=== PATIENT | male | born 1950 | race Caucasian/White ===

== ENCOUNTER 2017-03-20 09:30 | Inpatient (IN) | payer MEDICARE ==
[~2017-03-20] VITALS: Ht 173 cm; Wt 101.0 kg
[2017-03-20] VITALS (7 sets, daily range): BP systolic 116–159; BP diastolic 59–78
--- NOTE | ~2017-03-20 | CON ---
[place], [place] REPORT OF CONSULTATION NAME: DEBBIE BARONE [facility] #: [id number] UNIT #: [id number] ROOM: 511 DOCTOR: SG BURCH MD BIRTHDATE: [birth year] DOS: 03/21/2017 CONSULTATION REQUESTED BY: Hospitalist services. REASON FOR CONSULTATION: Assess the patient for acute pneumonia. HISTORY OF PRESENT ILLNESS: This is a 66-year-old white male who has been admitted to the hospital on 03/20/2017. The patient came into the hospital, as the patient was noted with having progressive increased respiratory symptom. The patient rather reported having runny nose with mild cough initially. The symptoms have been noted progressively worsened with significant progressive shortness of breath. The shortness of breath has been noted with gradually worsening. The patient presented to the Emergency Room for assessment of that. He was also complaining of heaviness in the chest. As the patient arrived in the Emergency Room, his saturation noted at 85%. The patient has been treated with Levaquin by the primary care physician initially with recurrent symptoms. The patient was also noted with confusional status as well previously that seemed to be resolved at this time. He has been assessed in the Emergency Room with chest x-ray and then later on CT scan of the chest was also done. It has reported bilateral patchy infiltration in the lungs. REVIEW OF SYSTEMS: CONSTITUTIONAL: Fatigue and tiredness noted. The patient denies any fever or chills. EYES: Denied any burning, redness, or tenderness. EARS, NOSE, THROAT SYMPTOMS: No sore throat, hoarseness, otalgia, postnasal drainage. CARDIOVASCULAR: Denies any anginal pain, edema or pain of the lower extremities. GASTROINTESTINAL: Dysphagia was noted. He has been noted some vomiting and nausea previously, which seemed to be resolved. GENITOURINARY SYMPTOMS: Denies dysuria, suprapubic pain, hematuria. MUSCULOSKELETAL: Flank pain. SKIN: Denies any abnormal lesions or rashes. CENTRAL NERVOUS SYSTEM: Denies dizziness, headache at this time. The patient has been noted dizziness as previously and confusion, which seemed to be all resolved. Denies symptoms of seizures. Denies syncopal episodes. Remaining systems were reviewed with the patient, they were noted all negative. PAST MEDICAL HISTORY: Known with history of: 1. General anxiety disorder. 2. Essential hypertension. 3. Hyperlipidemia. 4. History of gout. PAST SURGICAL HISTORY: 1. Lithotripsy. 2. Right knee replacement. 3. Cardiac catheterization. [place], [place] REPORT OF CONSULTATION NAME: DEBBIE BARONE UNIT #: [id number] ROOM: [facility] DOCTOR: PRIYANKA ZAMORA MD,SG BIRTHDATE: [birth year] SOCIAL HISTORY: The patient stated that he is . He has 2 children. Smoked about 3 cigarettes a day. Denies any history of alcohol use, illicit drug use. The patient denies any exposure to any chemical dust recently. FAMILY HISTORY: Father at the age of 5858 years old from complication of cancer in the bone. The mother at the age of 8181 years old from complication related to acute stroke. HOME MEDICATIONS: Noted use of allopurinol, Xanax, aspirin, Lipitor, vitamin D, losartan, metoprolol tartrate, Paxil and Comfrey 3 fatty acids. DRUG ALLERGIES: NOTED ALLERGY TO AMOXICILLIN. PHYSICAL EXAMINATION: GENERAL: A 66-year-old white male who has been currently noted awake and alert without any distress. VITAL SIGNS: Height of 5 feet 8 inches, weight of 173 pounds. BMI 33.7. HEENT: Head is atraumatic. Eyes, nonicterus. NECK: Supple. CARDIOVASCULAR: S1, S2 is audible. LUNGS: The patient was noted with scattered crackles in the lung is noted with significantly reduced breath sounds bilaterally with expiratory wheezing. There were no crackles. ABDOMEN: Soft, nontender and obese. EXTREMITIES: Noted without any edema, clubbing, cyanosis. NEUROLOGIC: Cranial nerves 2-12 intact. No focal deficits. MUSCULOSKELETAL: Does not show any acute deformities. LABORATORY DATA: Lactic acid on admission 03/20/2017 was at 2.3. Follow up lactic acid same day is 2.1. The ammonia level noted less than 10 on 03/20/2017. CMP on 03/20/2017, BUN 27, creatinine normal, glucose 134. Sodium 134. Albumin 2.2. CBC on 03/20/2017, WBC count 12.5, hemoglobin 12.2, hematocrit 35.9, platelet count was noted 214,000. CBC of this morning, WBC count 12.9, hemoglobin 11, hematocrit 32.5, platelet count 205,000, 78% segmented neutrophils. The CMP on 03/21/2017 was noted BUN 26, creatinine 1.25 and glucose 335. BUN and creatinine was normal. Urine culture that was done 03/20/2017 shows no bacterial growth. The chest x-ray 2 view, which were done in the Emergency Room, personally reviewed showed bilateral area of patchy infiltration in the lungs. CT scan of the head in the Emergency Room was also done for assessment of confusion. Shows mild paranasal sinusitis without any acute intracranial abnormalities. CT scan of the chest that was done personally reviewed without contrast. The mediastinal window was initially reviewed does not show any lymphadenopathy even the CT scan was done without contrast. The lymph node enlargement does not seem to be any significant. However, the finding still would be considered limited because of the lack of the contrast to delineated structures. CT scan of the chest dramatic finding, area of consolidation, which is present with associated ground glass opacity in the lungs. The findings were present in the left upper lung, right middle lobe, patchy infiltration lung capacity in the lingula. Lower lobe noted only small ground glass opacities. The area in the other lung continues with the ground [place], [place] REPORT OF CONSULTATION NAME: DEBBIE BARONE UNIT #: [id number] ROOM: 511 DOCTOR: SG BURCH MD BIRTHDATE: [birth year] glass opacities with area of consolidation combination and some air bronchograms. Chest x-ray in 2013 was noted to be normal. IMPRESSION: 1. The patient who has been currently admitted to the hospital with symptoms of confusion, bilateral current ground opacity area of consolidation with a differential diagnosis considered for Legionella pneumonia, mycoplasma pneumonia and bacterial pneumonia including streptococcal pneumonia as well. The other possibility less likely to be considered as acute eosinophilic pneumonia with other differential remains as acute hypersensitivity pneumonitis. The patient's drug reaction which appeared to be less likely because of current distribution of the pulmonary infiltrations. Additional differential diagnosis would be considered as cryptogenic organizing pneumonia. Possibility of vasculitis and connective tissue disorder appeared to be less likely because of no other multisystem involvement except confusion noted on the admission, which seemed to be better. Viral etiology, current pneumonia would be considered as well. 2. The patient with acute exacerbation of chronic obstructive pulmonary disease and bronchial asthma would be considered concomitantly. PLAN OF MANAGEMENT: Order the workup rather for the current acute pneumonia. Order the urine for legionella antigen as well as Mycoplasma antibodies. The patient will be also ordered the usual work connective tissue disorder, ESR, and procalcitonin level. Nasopharyngeal PCR specimen will be obtained as well and also obtain the specimen for the RSV infection as well. Start the patient on intravenous corticosteroids. Coverage for atypical infection would be given with the antibiotics. Bronchodilator will be continued to help mobilize the secretions. Monitor respiratory status closely with chest x-ray progression as well. Other supportive treatment to be continued as well. Sputum for Gram stain and culture is able to expectorate sputum could be sent to the lab as well. Usual care, other plan of therapy and care. Additional treatment changes to be made for this patient based on the progression of the illness. Thank you for allowing me to participate in the care of this patient. SG MATHEW MD CM:CONSTR:REPORT OF CONSULTATION 1326 03/22/17 0200 interface
--- NOTE | ~2017-03-20 | PR ---
[place], [place] PROGRESS NOTE NAME: DEBBIE BARONE UNIT #: [id number] ROOM: [facility] DOCTOR: SG BURCH MD BIRTHDATE: [birth year] DOS: 03/22/2017 SUBJECTIVE: He has been noted comfortable with reduction in symptoms of shortness of breath. He had been comfortably resting on the bed at this time. Denies symptoms of chest pain. Cough has been noted mild without any sputum expectoration. OBJECTIVE: VITAL SIGNS: Vital signs which were recorded for the patient showed the temperature noted as normal. Respiratory rate 20, heart rate of 62, blood pressure 180/93-168/80. Pulse oxygen saturation of the patient recorded on 2 liters nasal cannula 98% saturation. HEENT: Moderate obesity. NECK: Supple. CARDIOVASCULAR: S1, S2 audible. LUNGS: Noted with moderate reduction in the breath sounds, scattered crackles. There was no wheezing, scattered wheezing rather as well. ABDOMEN: Soft, nontender. LABORATORY DATA: BMP today: BUN 29, creatinine was normal. CBC this morning; WBC count 17.8, hemoglobin 11.2, hematocrit 33.0, platelet count 248,000. ESR was noted as 97 was elevated, C-reactive protein was also elevated 9.82. Influenza A and B, nasal washing antigens were negative. Respiratory viral panel for the patient was also ordered, which was pending. Other workup for connective tissue disorder remains pending as well. IMPRESSION: The patient who has been currently admitted to the hospital noted with findings of bilateral areas of infiltration, which was noted in the lungs bilaterally with consolidation and ground glass opacities. Etiology has been considered as bacteria, viral and other noninfectious etiology causing the current abnormalities. Some of the testing which has been ordered for the patient was pending at this time. Symptomatically the patient has been noted with partial improvement. PLAN OF MANAGEMENT: Continuation of the bronchodilators, oxygen supplementation, corticosteroids intravenously, Zithromax and Rocephin. Follow up chest x-ray in the next 24 hours will be ordered. [place], [place] PROGRESS NOTE NAME: DEBBIE BARONE UNIT #: [id number] ROOM: [facility] DOCTOR: SG BURCH MD BIRTHDATE: [birth year] SG MATHEW MD CM:EVELIO [id number] SG ZAMORA MD 03/23/17 0014 interface
--- NOTE | ~2017-03-20 | PR ---
[place], [place] PROGRESS NOTE NAME: DEBBIE BARONE UNIT #: [id number] ROOM: [facility] DOCTOR: PRIYANKA ZAMORA MD,SG BIRTHDATE: [birth year] DOS: 03/23/2017 SUBJECTIVE: The patient was seen and examined on 03/23/2017. He has been noted in confusional status. The patient at nighttime taking off his pants being on the floor and could not remember those episodes. This morning, the patient has been noted awake and alert. He has reported symptoms of snoring at home. I did speak with the of this patient. It has been noted currently the patient's status occurring for the past 3-4 days. However, the symptoms of the patient described consistent with obstructive sleep apnea disorder, has been reported from home. He has not been noted any symptoms of chest pain. The patient does have symptoms of cough. Denies symptoms of hemoptysis. OBJECTIVE: VITAL SIGNS: Temperature remains normal. The respiratory rate of 19, heart rate 64, blood pressure in 220/110-136/69. Intake of the patient 2700 mL, output 1050. The pulse oxygen saturation noted on 3 liters nasal cannula 96% saturation. HEENT: Examination shows chronic obesity. Head was atraumatic. NECK: Supple. CARDIOVASCULAR: S1, S2 audible. LUNGS: Noted without any wheeze or crackles at the present time. ABDOMEN: Noted soft with chronic obesity. Bowel sounds present. EXTREMITIES: Shows chronic obesity without any edema, clubbing or cyanosis. SKIN: No lesions noted. No rashes. LABORATORY AND DIAGNOSTIC DATA: The arterial blood gas 2 liters nasal cannula was done at 4:21 p.m., pH is 7.39, pCO2 of 32, pO2 of 80.8. Ammonia level was noted at 20. Urine drug screen negative yesterday as well. CMP this morning, normal BUN and creatinine. Albumin 2.2. AST 47, ALT of 81. CBC of 03/23/2017, WBC count 17,000, hemoglobin 11.1, hematocrit 33.1, platelet count 180,000, 85% segmented neutrophils noted. Arterial blood gas again repeated on 3 L nasal cannula, pH of 7.37, pCO2 of 39.5, pO2 of 117. The culture of the sputum was noted as normal luisito. The mycoplasma IgG level was mildly elevated with normal IgM which is not noted consistent with acute infection. B12 level was noted with mildly elevated at 1182. The chest x-ray yesterday was noted essentially improvement in the pulmonary infiltration as compared with the admission chest x-ray with significant improvement continued. The chest x-ray of the patient done this morning was also noted further continued improvement. IMPRESSION: 1. The patient noted bilateral pulmonary infiltration. The patient is suspected pneumonia and other etiologies. The patient currently being treated. 2. Confusion status in nighttime, possibility of sleep disorder with parasomnia would be considered in the differential diagnosis, rule out psychosis as well. 3. The patient was noted disparity of the blood pressure in both arm, rule out subclavian stenosis. 4. Chronic obesity. 5. Clinical strong suspicion of obstructive sleep apnea disorder. PLAN OF TREATMENT: Possibility of multiorgan system involvement including the [place], [place] PROGRESS NOTE NAME: DEBBIE BARONE UNIT #: [id number] ROOM: [facility] DOCTOR: SG BURCH MD BIRTHDATE: [birth year] brain to be assessed. The patient requires further workup from a neurology standpoint and vascular workup and was recommended for transfer to the tertiary care facility. For all the facilities and the consultation appropriate needed for the patient would be available. This was discussed with the patient's daughter and the medical historian taking care of this patient. The arrangement will be made for this patient for transfer to another hospital, [facility]. The patient's pneumonia and other process, which are noted in the lungs, is pending. Certain workup for vasculitis that has been sent on this patient, which has been pending at this time of the assessment. Other supportive plan of therapy, care and plan. SG MATHEW MD CM:PNBATSHEVA [id number] SG ZAMORA MD 03/29/17 0921 interface
--- NOTE | ~2017-03-20 | EKG ---
[place], [place] ELECTROCARDIOGRAM REPORT NAME: DEBBIE BARONE UNIT #: [id number] ROOM: 511 DOCTOR: PRIYANKA ZAMORA MD,SG BIRTHDATE: [birth year] DOS: 03/20/2017 Electrocardiogram testing was done 03/20/2017 10:02 a.m. Normal sinus rhythm noted with heart rate of 73 beats per minute with nonspecific ST-T changes noted to aVL. Otherwise, normal electrocardiogram. SG MATHEW MD CM:EKGRPT:ELECTROCARDIOGRAM REPORT [id number] SG ZAMORA MD
[2017-03-20 10:13] LABS: HEMATOCRIT 35.9 % (42.0-52.0); HEMOGLOBIN 12.2 g/dl (14.0-18.0); MEAN CELL VOLUME 98.1 fl (80.0-94.0); MEAN CORPUSCULAR HGB 33.3 pg (27.0-31.0); MEAN PLATELET VOLUME 10.8 fl (9.6-12.3); NUCLEATED RED BLOOD CELL 0.2 % (0.0-0.0); PLATELET COUNT AUTOMATED 214 10*3/uL (130-400); RED BLOOD COUNT 3.66 10*6/uL (4.50-5.90); RED CELL DISTRI WIDTH 13.3 % (0-14.5); WHITE BLOOD COUNT 12.5 10*3/uL (4.8-10.8)
--- NOTE | 2017-03-20 10:21 | NUR ---
HEMANT ROBLES MADE AWARE OF NOTED ST ELEVATION ON PT MONITOR.SHE ORDERED AN EKG AND IS COMPARING IT TO PREVIOUS EKG--BETZY FIERRO RN
[2017-03-20 10:31] LABS: ALBUMIN 2.2 gm/dl (3.1-4.5); ALKALINE PHOSPHATASE 107 U/L (45-117); BUN 27 mg/dl (7-24); CHLORIDE 100 mmol/L (98-107); POTASSIUM 4.2 mmol/L (3.5-5.1); SGOT/AST 21 IU/L (3-35); SGPT/ALT 30 U/L (12-78); SODIUM 134 mmol/L (136-145); TOTAL PROTEIN 7.3 gm/dL (6.4-8.2)
[2017-03-20 10:32] LABS: ETHYL ALCOHOL < 3.0 mg/dl (<3); TROPONIN I < 0.015 ng/ml (<0.045)
--- NOTE | 2017-03-20 10:34 | NUR ---
pt returning FROM XRAY AT THIS TIME.---BETZY FIERRO RN
[2017-03-20 10:42] LABS: PLATELET SUFFICIENCY NORMAL (NORMAL); TOTAL CELLS COUNTED 100 #CELLS
[2017-03-20 10:43] LABS: TOXIC GRANULATION SLIGHT
[2017-03-20 11:01] LABS: BILIRUBIN NEGATIVE (NEGATIVE); BLOOD 1+ (NEGATIVE); CLARITY CLEAR (CLEAR); COLOR YELLOW (YELLOW); GLUCOSE NEGATIVE (NEGATIVE); KETONE NEGATIVE (NEGATIVE); LEUKO ESTERASE NEGATIVE (NEGATIVE); NITRITE NEGATIVE (NEGATIVE); PH 6.5 (5.0-9.0); SPECIFIC GRAVITY 1.015 (1.005-1.030); UROBILINOGEN 0.2 E.U./dl (0.2-1.0)
[2017-03-20 11:09] LABS: RBC 0-2 rbc/hpf (0-2)
--- NOTE | 2017-03-20 12:50 | NUR ---
Time: 0 A 66 year old MALE admitted to 5E under services of GAUTAM PENN DO, Pt. arrived via stretcher from ER. Chief complaint: COUGH, WHEEZING, CONFUSED LAST NIGHT, TALKING OUT WHILE S. SLEEPING. ASHLEY DOWELL
[2017-03-20] MEDS ORDERED: XANAX0.5 MG PO (13:10)
[2017-03-20] MEDS ORDERED: PAXIL20 M1 PO (13:11)
[2017-03-20] MEDS ORDERED: ASPIRIN CHILDRE81 MG PO (13:11)
[2017-03-20] MEDS ORDERED: FISH OIL 1,2001 EAC1 PO (13:12)
[2017-03-20] MEDS ORDERED: VITAMIN D32000 UNIT PO (13:12)
[2017-03-20] MEDS ORDERED: LOSARTAN POTASS50 M1 PO (13:13)
[2017-03-20] MEDS ORDERED: TOPROL XL25 MG PO (13:13)
[2017-03-20] MEDS ORDERED: ALLOPURINOL100 MG PO (13:14)
[2017-03-20] MEDS ORDERED: LIPITOR20 MG PO (13:14)
--- NOTE | 2017-03-20 15:43 | NUR ---
DR. MATHEW NOTIFIED OF CONSULT.
--- NOTE | 2017-03-20 18:28 | NUR ---
RESTING WITH NO DISTRESS.
--- NOTE | 2017-03-20 19:30 | NUR ---
ASSUMED CARE OF PT AT THIS TIME, RESPS EASY AND NONLABORED WITH NO S/S OF DISTRESS CALL LIGHT WITH IN REACH
[2017-03-21] VITALS: BP 155/73
--- NOTE | 2017-03-21 01:55 | NUR ---
PT RESTING IN BED AT THIS TIME, RESPS EASY AND NONLABORED EYES CLOSED, NO S/S OF DISTRESS CALL LIGHT WITH IN REACH
[2017-03-21 06:51] LABS: HEMATOCRIT 32.5 % (42.0-52.0); MEAN CELL VOLUME 99.7 fl (80.0-94.0); MEAN CORPUSCULAR HGB 33.7 pg (27.0-31.0); MEAN CORPUSCULAR HGB CONC 33.8 g/dl (33.0-37.0); MEAN PLATELET VOLUME 11.1 fl (9.6-12.3); PLATELET COUNT AUTOMATED 205 10*3/uL (130-400); RED BLOOD COUNT 3.26 10*6/uL (4.50-5.90); RED CELL DISTRI WIDTH 13.4 % (0-14.5); WHITE BLOOD COUNT 12.9 10*3/uL (4.8-10.8)
[2017-03-21 07:21] LABS: TOTAL CELLS COUNTED 100 #CELLS
[2017-03-21 07:22] LABS: PLATELET SUFFICIENCY NORMAL (NORMAL); TOXIC GRANULATION SLIGHT
[2017-03-21 07:27] LABS: ALBUMIN 2.2 gm/dl (3.1-4.5); BUN 26 mg/dl (7-24); CHLORIDE 103 mmol/L (98-107); CHOLESTEROL 122 mg/dL (<200); PHOSPHOROUS 2.2 mg/dL (2.5-4.9); SGOT/AST 25 IU/L (3-35); SGPT/ALT 34 U/L (12-78); SODIUM 136 mmol/L (136-145); TRIGLYCERIDES 113 mg/dl (<150); VLDL CHOLESTEROL 23 mg/dL (6-40)
[2017-03-21 07:36] LABS: VITAMIN D, 25-HYDROXY 37.1 ng/mL (30-100)
[2017-03-21 07:38] LABS: ALKALINE PHOSPHATASE 101 U/L (45-117); CREATININE 1.25 mg/dL (0.70-1.30); FREE T4 1.12 ng/dl (0.76-1.46); HDL CHOLESTEROL 20 mg/dl (40-60); LDL CHOLESTEROL 79 mg/dL (9-159); THYROID STIM HORMONE (HS) 0.096 uIU/ml (0.358-4.75); TOTAL PROTEIN 6.6 gm/dL (6.4-8.2)
[2017-03-21 08:00] VITALS: BP 173/87
--- NOTE | 2017-03-21 09:00 | NUR ---
Anatomy And Physiology Instructor in to talk to patient. Patient states lives at home with . There are few steps in the home. Physician: reji amanda Pharmacy: [facility] health services: none Patient's level of ADLs: INDEPENDENT Patient has working utilities: all working DME: [employer] Follow-up physician's appointment after d/c: will be made by hosptialist nurse director upon discharge Does patient want to access PORTAL?: no Discharge plan discussed with patient, patient lives at home with , patient states he is independent in adls and ambulation, drives, patient states he will be going back home and denies any home needs. SAMRA HALEY
[2017-03-21 12:00] VITALS: BP 153/70
[2017-03-21 16:17] VITALS: BP 170/92
[2017-03-21 20:00] VITALS: BP 179/85
[2017-03-22] VITALS (7 sets, daily range): BP systolic 140–197; BP diastolic 70–95
--- NOTE | 2017-03-22 01:00 | NUR ---
24 HR chart check completed.
[2017-03-22 06:10] LABS: IMMUNOGLOBULIN IgE 002170 491 IU/mL (0-100)
[2017-03-22 08:30] LABS: HEMOGLOBIN 11.2 g/dl (14.0-18.0); MEAN CELL VOLUME 99.1 fl (80.0-94.0); MEAN CORPUSCULAR HGB 33.6 pg (27.0-31.0); MEAN CORPUSCULAR HGB CONC 33.9 g/dl (33.0-37.0); MEAN PLATELET VOLUME 10.5 fl (9.6-12.3); NUCLEATED RED BLOOD CELL 0.2 % (0.0-0.0); PLATELET COUNT AUTOMATED 248 10*3/uL (130-400); RED BLOOD COUNT 3.33 10*6/uL (4.50-5.90); WHITE BLOOD COUNT 17.8 10*3/uL (4.8-10.8)
[2017-03-22 08:48] LABS: TOTAL CELLS COUNTED 100 #CELLS
[2017-03-22 08:49] LABS: BUN 29 mg/dl (7-24); CHLORIDE 106 mmol/L (98-107); PLATELET SUFFICIENCY NORMAL (NORMAL); POLYCHROMASIA SLIGHT; POTASSIUM 4.4 mmol/L (3.5-5.1); SODIUM 137 mmol/L (136-145); TOXIC GRANULATION SLIGHT
[2017-03-22 08:51] LABS: CREATININE 1.21 mg/dL (0.70-1.30)
--- NOTE | 2017-03-22 09:00 | NUR ---
case management visits with patient, patient denies any home needs
--- NOTE | 2017-03-22 10:45 | NUR ---
MEDICATED WITH PRN PO XANAX FOR C/O ANXIETY.
--- NOTE | 2017-03-22 11:30 | NUR ---
PRN PO XANAX EFFECTIVE, PER PATIENT.
--- NOTE | 2017-03-22 13:18 | NUR ---
PATIENT HAVING PERIODS OF CONFUSION, ENCOURAGED TO KEEP OXYGEN NASAL CANNULA IN PLACE.
--- NOTE | 2017-03-22 15:06 | NUR ---
PATIENT HAVING HALLUCINATIONS, STATES SEEING FIGURES SNEAKING AROUND AND HIDING IN PURPLE LIQUID. HE ALSO INQUIRED IF HE WAS STILL IN ROOM 511-1. O2 2L NC IN PLACE, POX 96%, SEE VITAL SIGNS FLOW. DR. CASH NOTIFIED.
[2017-03-22 16:10] LABS: ALDOLASE 002030 6.7 U/L (3.3-10.3); ANGIOTENSIN-CONVERTING ENZYME 28 U/L (14-82)
[2017-03-22 16:39] LABS: ABG BASE EXCESS -4.3 mmol/L (-2.0-2.0); ABG HCO3 19.6 mmol/l (22-26); ABG O2 SATURATION 96.8 % (95-97); ARTERIAL BLOOD GAS PCO2 32.9 mmHg (35-45); ARTERIAL BLOOD GAS PH 7.391 (7.35-7.45); ARTERIAL BLOOD GAS PO2 80.8 mmHg (80-90)
--- NOTE | 2017-03-22 17:00 | NUR ---
DR. SOMERS WAS IN TO SEE PATIENT RE: PLAN OF CARE. PATIENT DENIED HAVING SIGNIFICANT CONFUSION, STATES HAD SOME BRIEF DISORIENTATION LAST NIGHT, LIKE NIGHTMARES, BUT THEN CONTINUES TO SPEAK OF PEOPLE WORKING IN THE [place] AT NIGHT AND LIQUID-LIKE THINGS COMING OUT OF [place]. IN TO VISIT AND AGREES THAT PATIENT IS CONFUSED AND BASELINE WAS COMPLETELY ORIENTED TWO DAYS AGO. RESPIRATORY THERAPIST OBTAINED ABG'S. ORDER ENTERED TO TRANSFER PATIENT TO [facility].
[2017-03-22 17:06] LABS: MYCOPLASMA PNEUMONIAE IGG 107 U/mL (0-99); MYCOPLASMA PNEUMONIAE IGM <770 U/mL (0-769)
--- NOTE | 2017-03-22 17:20 | NUR ---
PATIENT TRANSFERRED TO [facility], REPORT GIVEN TO RECEIVING RN.
--- NOTE | 2017-03-22 17:30 | NUR ---
PT TRANSFERED TO [facility] 9 FROM AT THIS TIME. PT IS ALERT AND ORIENTED. VSS. NSR ON MONITOR.
[2017-03-22 17:58] LABS: URINE AMPHETAMINES < 1000 (1000ng/ml); URINE BARBITURATES < 200 (200ng/ml); URINE BENZODIAZEPINES < 200 (200ng/ml); URINE CANNABINOIDS (THC) < 50 (50ng/ml); URINE COCAINE < 300 (300ng/ml); URINE METHADONE < 300 (300ng/ml); URINE OPIATES < 300 (300ng/ml)
[2017-03-22 17:59] LABS: URINE PHENCYCLIDINE < 25 (25ng/ml)
--- NOTE | 2017-03-22 18:17 | NUR ---
PT MEDICATED WITH LIBRIUM PO PRN AT THIS TIME. PT ADMITS TO DRINKING AFTER WORK EVERYDAY AND PT TRANSFERED TO [facility] AFTER HAVING PERIODS OF CONFUSION AND VISUAL HALLUCINATIONS ON 5E.
--- NOTE | 2017-03-22 20:21 | NUR ---
1945 SITTING UP ON THE SIDE OF THE BED USING URINAL. POLANCO. PULSE OX 90%. HEP LOCK INTACT. WILL RESUME IV FLUIDS AFTER ANTIBIOTICS DONE. ALERT AND PLEASANT. 1999 PULSE OX 96% AFTER RESTING. DR. ROBLERO HERE TO SEE PT. PT RESTING IN BED WATCHING TV. NO C/O'S PAIN OR DISCOMFORT VOICED.
--- NOTE | 2017-03-22 21:48 | NUR ---
XANAX GIVEN FOR SLEEP. WILL MONITOR. RESTING IN BED WATCHING TV. REMAINS ALERT AND ORIENTED.
[2017-03-23] VITALS: BP 140/72
--- NOTE | 2017-03-23 00:26 | NUR ---
EARLIER XANAX EFFECTIVE. RESTING IN BED WITH EYES CLOSED.
--- NOTE | 2017-03-23 02:05 | NUR ---
0150 PT OOB . STANDING AT BEDSIDE. CONFUSED. TO PLACE AND TIME. COOPERATIVE. MONITOR OFF. USED URINAL. BACK TO BED WITH 1 ASSIST. IV INTACT. PULSE OX 96% ON 3L. WILL CONT TO MONITOR.
[2017-03-23 04:00] VITALS: BP 136/69
--- NOTE | 2017-03-23 04:06 | NUR ---
0330 AWAKENED FOR BREATHING RX. AUDUBLE WHEEZE NOTED. REMAINS CONFUSED. LIBRIUM PO GIVEN. WILL MONITOR. 0405 EARLIER MED EFFECTIVE. RESTING IN BED WITH EYES CLOSED.APPEARS TO BE SLEEPING.
[2017-03-23 04:45] LABS: HEMATOCRIT 33.1 % (42.0-52.0); HEMOGLOBIN 11.1 g/dl (14.0-18.0); MEAN CORPUSCULAR HGB 33.5 pg (27.0-31.0); MEAN CORPUSCULAR HGB CONC 33.5 g/dl (33.0-37.0); MEAN PLATELET VOLUME 10.3 fl (9.6-12.3); NUCLEATED RED BLOOD CELL 0.2 % (0.0-0.0); PLATELET COUNT AUTOMATED 280 10*3/uL (130-400); RED BLOOD COUNT 3.31 10*6/uL (4.50-5.90); RED CELL DISTRI WIDTH 14.1 % (0-14.5)
[2017-03-23 05:00] LABS: ALBUMIN 2.2 gm/dl (3.1-4.5); ALKALINE PHOSPHATASE 91 U/L (45-117); BUN 23 mg/dl (7-24); CHLORIDE 102 mmol/L (98-107); CREATININE 1.04 mg/dL (0.70-1.30); POTASSIUM 4.5 mmol/L (3.5-5.1); SGOT/AST 47 IU/L (3-35); SGPT/ALT 81 U/L (12-78); SODIUM 137 mmol/L (136-145); TOTAL PROTEIN 6.3 gm/dL (6.4-8.2)
[2017-03-23 05:30] LABS: PLATELET SUFFICIENCY NORMAL (NORMAL); TOTAL CELLS COUNTED 100 #CELLS; TOXIC GRANULATION SLIGHT
[2017-03-23 06:00] LABS: ABG BASE EXCESS -2.1 mmol/L (-2.0-2.0); ABG HCO3 22.5 mmol/l (22-26); ABG O2 SATURATION 98.3 % (95-97); ARTERIAL BLOOD GAS PCO2 39.5 mmHg (35-45); ARTERIAL BLOOD GAS PH 7.371 (7.35-7.45)
--- NOTE | 2017-03-23 06:08 | NUR ---
REMAINS SLEEPING. HEP LOCK INTACT. 02 INTACT. NO DISTRESS NOTED. CONDITION GUARDED.
[2017-03-23 07:40] VITALS: BP 170/110; BP 220/110
--- NOTE | 2017-03-23 07:40 | NUR ---
ASSESSMENT DONE AT BEDSIDE - PATIENT IS ALERT BUT CONFUSED. ORIENTED TO PERSON & BUT NOT PLACE. REMEMBER WHEN TOLD THAT HE WAS SICK BUT NOT WHAT WAS WRONG. IV started right hand with #22 protective cath after 2 attempts. Site prepped with Chloroprep. Sterile dressing applied. Patient tolerated procedure well. NO NEURO DEFICITS OTHER THAN CONFUSION. EQUAL HOSE INSPECTOR AND PATCHER BILAT, GOOD PULSES TO ALL EXTEMITIES, NO DEFICITS TO LOWER EXTREMITIES. MARA MIRAMONTES
[2017-03-23 08:00] VITALS: BP 220/110
--- NOTE | 2017-03-23 09:18 | NUR ---
DR MATHEW HERE - SPOKE WITH DR ORTIZ & THEY DECIDED TO HOLD THE CTA UNTIL TRANSFERRED. dR MATHEW ALSO SPOKE WITH THE ABOUT HIS SLEEP HISTORY.
--- NOTE | 2017-03-23 09:21 | NUR ---
RE EIVED CALL FROM [facility] FOR FACE SHEET TO BE FAXED TO [phone]
[2017-03-23] MEDS ORDERED: LOSARTAN POTAS100 M1 PO (09:32)
[2017-03-23] MEDS ORDERED: AMLODIPINE BESYL5 MG PO (09:32)
[2017-03-23 10:11] VITALS: BP 160/90; BP 168/92
--- NOTE | 2017-03-23 10:30 | NUR ---
AWAITING CALL FROM [facility] CALL ABOUT BED ARRANGEMENTS. NOW AT BEDSIDE. MED LIST IS UNCHANGED FROM WHAT WAS CHARTED. PATIENT HAS DECIDED THAT HE DOESN'T WANT TO EAT OMLETTE.
--- NOTE | 2017-03-23 10:58 | NUR ---
REPORT TO TREVER AT [facility]. AWAITING [facility] TO ARRIVE FOR TRANSFER. FAMILY AT BEDSIDE
--- NOTE | 2017-03-23 11:33 | NUR ---
PATIENT COUGHING OCC PROD FOR THICK - FAMILY AT BEDSIDE. IV ANTIBIOTIC INFUSING PRIOR TO TRANSFER TO [facility]. AEROSAL TX GIVEN
[2017-03-23 11:47] VITALS: BP 148/82
--- NOTE | 2017-03-23 11:52 | NUR ---
PATIENT BEGAN DOZING OFF BREATHING VIA NOSE BUT SATS STARTED TO DROP TO 89% ON NC2L SO INCREASED O2 TO 3LNC. SATS NOW 91%
--- NOTE | 2017-03-23 12:10 | NUR ---
[facility] HERE TO TRANSPORT PATIENT TO [facility]. FAMILY HERE.
[2017-03-23 16:09] LABS: LEGIONELLA URINARY ANTIGEN Negative (Negative)
[2017-03-23 17:06] LABS: ATYPICAL PANCA <1:20 titer (Neg:<1:20); CYTOPLASMIC (C-ANCA) 1:20 titer (Neg:<1:20); PERINUCLEAR (P-ANCA) <1:20 titer (Neg:<1:20)
[2017-03-24 01:03] LABS: ADENOVIRUS Negative (Negative); INFLUENZA A Negative (Negative); INFLUENZA B Negative (Negative); METAPNEUMOVIRUS Negative (Negative); PARAINFLUENZA 1 Negative (Negative); PARAINFLUENZA 2 Negative (Negative); PARAINFLUENZA 3 Negative (Negative); RHINOVIRUS Positive (Negative); RSV A Negative (Negative); RSV B Negative (Negative)
[2017-03-24 15:07] LABS: IGG SUBCLASS 1 363 mg/dL (248-810); IGG SUBCLASS 2 263 mg/dL (130-555); IGG SUBCLASS 3 32 mg/dL (15-102); IGG SUBCLASS 4 53 mg/dL (2-96)
== END 2017-03-23 12:10 | disposition short-term general hospital (02) | DRG 871 ==
LOC: ED 09:30 → 5E 11:47 → EDHOLD 11:47 → 5E 12:00 → ICCU 03-22 17:06
PROVIDERS: Internal Medicine; Internal Medicine Critical Care Medicine; Internal Medicine Nephrology; Nurse Practitioner Family; Registered Nurse; ADMIT Internal Medicine
DX: A41.9 Sepsis, unspecified organism (principal); J15.6 Pneumonia due to other Gram-negative bacteria; E44.0 Moderate protein-calorie malnutrition; G93.41 Metabolic encephalopathy; J44.0 Chronic obstructive pulmonary disease with (acute) lower respiratory infection; E87.1 Hypo-osmolality and hyponatremia; J44.1 Chronic obstructive pulmonary disease with (acute) exacerbation; R65.20 Severe sepsis without septic shock; E55.9 Vitamin D deficiency, unspecified; I10 Essential (primary) hypertension; E78.00 Pure hypercholesterolemia, unspecified; M10.9 Gout, unspecified; F41.1 Generalized anxiety disorder; G47.33 Obstructive sleep apnea (adult) (pediatric); E66.8 Other obesity; Z96.651 Presence of right artificial knee joint; Z88.8 Allergy status to other drugs, medicaments and biological substances; Z79.899 Other long term (current) drug therapy; Z79.82 Long term (current) use of aspirin; Z72.0 Tobacco use; Z87.442 Personal history of urinary calculi; Z82.3 Family history of stroke; Z80.8 Family history of malignant neoplasm of other organs or systems; Z71.6 Tobacco abuse counseling; Z68.33 Body mass index [BMI] 33.0-33.9, adult

== ENCOUNTER → 2020-10-20 | Outpatient (CLI) | payer MEDICARE ==
[~2020-10-20] MED LIST: ALLOPURINOL100 MG PO; AMLODIPINE BESYL5 MG PO; ASPIRIN CHILDRE81 MG PO; FISH OIL 1,2001 EAC1 PO; LIPITOR20 MG PO; LOSARTAN POTAS100 M1 PO; LOSARTAN POTASS50 M1 PO; PAXIL20 M1 PO; TOPROL XL25 MG PO; VITAMIN D32000 UNIT PO; XANAX0.5 MG PO
[2020-10-20 13:45] LABS: BASO % 0.6 % (0.0-1.0); EOS # 0.4 10*3/uL (0.0-0.4); EOS % 5.4 % (1.0-4.0); HEMATOCRIT 40.9 % (42.0-52.0); LYMPH # 1.6 10*3/uL (1.3-4.4); LYMPH % 23.4 % (27.0-41.0); MEAN CELL VOLUME 99.3 fl (80.0-94.0); MEAN CORPUSCULAR HGB 33.3 pg (27.0-31.0); MEAN CORPUSCULAR HGB CONC 33.5 g/dl (33.0-37.0); MEAN PLATELET VOLUME 10.7 fl (9.6-12.3); MONO # 0.8 10*3/uL (0.1-1.0); MONO % 12.2 % (3.0-9.0); NEUT # 3.9 10*3/uL (2.3-7.9); NEUT % 58.1 % (47.0-73.0); PLATELET COUNT AUTOMATED 181 10*3/uL (130-400); RED BLOOD COUNT 4.12 10*6/uL (4.50-5.90); RETICULOCYTE % 2.21 % (0.50-2.50); WHITE BLOOD COUNT 6.6 10*3/uL (4.8-10.8)
[2020-10-20 13:46] LABS: BILIRUBIN Negative (Negative); BLOOD 1+ (Negative); CLARITY Clear (Clear); COLOR Yellow (Yellow); GLUCOSE Negative (Negative); KETONE Negative (Negative); LEUKO ESTERASE Negative (Negative); NITRITE Negative (Negative); PH 5.5 (4.5-8.0); SPECIFIC GRAVITY 1.015 (1.001-1.030); UROBILINOGEN 0.2 E.U./dl (0.0-1.0)
[2020-10-20 14:04] LABS: ALBUMIN 3.8 gm/dl (3.1-4.5); ALKALINE PHOSPHATASE 72 U/L (45-117); BUN 20 mg/dl (7-24); CHLORIDE 106 mmol/L (98-107); CHOLESTEROL 176 mg/dL (<200); CPK 104 U/L (39-308); CREATININE 1.08 mg/dL (0.70-1.30); GAMMA GLUTAMYL TRANSPEPTIDASE 57 U/L (15-85); IRON 166 ug/dL (65-175); LDL CHOLESTEROL 68 mg/dL (9-159); POTASSIUM 4.4 mmol/L (3.5-5.1); SGOT/AST 25 IU/L (3-35); SGPT/ALT 30 U/L (12-78); SODIUM 138 mmol/L (136-145); TOTAL IRON BINDING CAPACITY 361 ug/dl (250-450); TOTAL PROTEIN 7.5 gm/dL (6.4-8.2); TRIGLYCERIDES 221 mg/dl (<150)
[2020-10-20 14:10] LABS: FERRITIN 135.3 ng/mL (22.0-322.0); VITAMIN D, 25-HYDROXY 26.7 ng/mL (30-100)
[2020-10-20 14:12] LABS: THYROID STIM HORMONE (HS) 0.735 uIU/ml (0.358-4.75)
== END | disposition home or self-care (01) ==
LOC: LAB 13:06
PROVIDERS: ATTEND Family Medicine
DX: E55.9 Vitamin D deficiency, unspecified (principal); R79.89 Other specified abnormal findings of blood chemistry; R53.83 Other fatigue; E78.5 Hyperlipidemia, unspecified

== ENCOUNTER → 2021-05-31 | Outpatient (CLI) | payer MEDICARE ==
[2021-05-31 10:59] LABS: BASO # 0.1 10*3/uL (0.0-0.1); BASO % 0.7 % (0.0-1.0); EOS # 0.4 10*3/uL (0.0-0.4); EOS % 5.5 % (1.0-4.0); LYMPH # 1.5 10*3/uL (1.3-4.4); LYMPH % 22.3 % (27.0-41.0); MEAN CELL VOLUME 102.1 fl (80.0-94.0); MEAN CORPUSCULAR HGB CONC 33.3 g/dl (33.0-37.0); MEAN PLATELET VOLUME 10.6 fl (9.6-12.3); NEUT # 3.9 10*3/uL (2.3-7.9); NEUT % 57.2 % (47.0-73.0); PLATELET COUNT AUTOMATED 184 10*3/uL (130-400); RED BLOOD COUNT 3.82 10*6/uL (4.50-5.90); RED CELL DISTRI WIDTH 13.6 % (0-14.5); RETICULOCYTE % 2.61 % (0.50-2.50); WHITE BLOOD COUNT 6.9 10*3/uL (4.8-10.8)
[2021-05-31 11:06] LABS: BILIRUBIN Negative (Negative); BLOOD Negative (Negative); CLARITY Clear (Clear); COLOR Yellow (Yellow); GLUCOSE Negative (Negative); KETONE Negative (Negative); LEUKO ESTERASE Negative (Negative); NITRITE Negative (Negative); PH 5.5 (4.5-8.0); SPECIFIC GRAVITY 1.015 (1.001-1.030); UROBILINOGEN 0.2 E.U./dl (0.0-1.0)
[2021-05-31 11:21] LABS: MUCOUS TRACE; RBC 0-2 rbc/hpf (0-2); WBC 0-2 wbc/hpf (0-5)
[2021-05-31 11:26] LABS: ALBUMIN 3.4 gm/dl (3.1-4.5); ALKALINE PHOSPHATASE 95 U/L (45-117); BUN 24 mg/dl (7-24); CHLORIDE 106 mmol/L (98-107); CHOLESTEROL 169 mg/dL (<200); CREATININE 1.21 mg/dL (0.70-1.30); GAMMA GLUTAMYL TRANSPEPTIDASE 55 U/L (15-85); IRON 114 ug/dL (65-175); LDL CHOLESTEROL 61 mg/dL (9-159); POTASSIUM 4.1 mmol/L (3.5-5.1); SGOT/AST 26 IU/L (3-35); SODIUM 138 mmol/L (136-145); TOTAL IRON BINDING CAPACITY 297 ug/dl (250-450); TRIGLYCERIDES 209 mg/dl (<150)
[2021-05-31 11:31] LABS: SGPT/ALT 35 U/L (12-78); THYROID STIM HORMONE (HS) 0.736 uIU/ml (0.358-4.75)
== END | disposition home or self-care (01) ==
LOC: LAB 10:25
PROVIDERS: ATTEND Family Medicine
DX: E78.5 Hyperlipidemia, unspecified (principal); R79.89 Other specified abnormal findings of blood chemistry; Z12.5 Encounter for screening for malignant neoplasm of prostate; E55.9 Vitamin D deficiency, unspecified; R53.83 Other fatigue

== ENCOUNTER 2021-11-05 12:44 | Inpatient (IN) | payer MEDICARE ==
[~2021-11-05] VITALS: Ht 172.7 cm; Wt 88.6 kg
[2021-11-05] VITALS (8 sets, daily range): BP systolic 123–167; BP diastolic 59–84
[~2021-11-05 12:44] MED LIST changes: +LOPRESSOR25 MG PO; -TOPROL XL25 MG PO
[2021-11-05 13:26] LABS: BILIRUBIN Negative (Negative); BLOOD 3+ (Negative); CLARITY Clear (Clear); COLOR Yellow (Yellow); GLUCOSE Negative (Negative); KETONE Negative (Negative); LEUKO ESTERASE Negative (Negative); NITRITE Negative (Negative); PH 5.5 (4.5-8.0); SPECIFIC GRAVITY <= 1.005 (1.001-1.030); UROBILINOGEN 0.2 E.U./dl (0.0-1.0)
[2021-11-05 13:31] LABS: BASO % 0.3 % (0.0-1.0); EOS # 0.1 10*3/uL (0.0-0.4); HEMATOCRIT 43.3 % (42.0-52.0); LYMPH # 0.6 10*3/uL (1.3-4.4); LYMPH % 6.4 % (27.0-41.0); MEAN CELL VOLUME 98.4 fl (80.0-94.0); MEAN CORPUSCULAR HGB 33.4 pg (27.0-31.0); MEAN CORPUSCULAR HGB CONC 33.9 g/dl (33.0-37.0); MEAN PLATELET VOLUME 9.8 fl (9.6-12.3); MONO # 1.2 10*3/uL (0.1-1.0); MONO % 12.4 % (3.0-9.0); NEUT # 7.5 10*3/uL (2.3-7.9); NEUT % 79.5 % (47.0-73.0); PLATELET COUNT AUTOMATED 182 10*3/uL (130-400); RED CELL DISTRI WIDTH 13.2 % (0-14.5); WHITE BLOOD COUNT 9.4 10*3/uL (4.8-10.8)
[2021-11-05 13:35] LABS: URINE AMPHETAMINES < 1000 (1000ng/ml); URINE BARBITURATES < 200 (200ng/ml); URINE BENZODIAZEPINES > 200 (200ng/ml); URINE CANNABINOIDS (THC) < 50 (50ng/ml); URINE COCAINE < 300 (300ng/ml); URINE METHADONE < 300 (300ng/ml); URINE OPIATES < 300 (300ng/ml)
[2021-11-05 13:36] LABS: BACTERIA TRACE; EPITHELIAL CELLS 0-2; URINE PHENCYCLIDINE < 25 (25ng/ml)
[2021-11-05 13:46] LABS: CREATININE 2.18 mg/dL (0.70-1.30); TOTAL PROTEIN 6.7 gm/dL (6.4-8.2)
[2021-11-05 13:47] LABS: ACETAMINOPHEN (TYLENOL) < 5.0 ug/ml (10-30)
[2021-11-05] MEDS ORDERED: LIPITOR40 MG PO (18:23)
[2021-11-05] MEDS ORDERED: COZAAR25 M1 PO (18:25)
[2021-11-05] MEDS ORDERED: COZAAR50 M1 PO (18:27)
[2021-11-06] VITALS: BP 176/78
[2021-11-06 04:00] VITALS: BP 167/81
[2021-11-06 05:58] LABS: CREATININE 2.2 mg/dL (0.70-1.30); FREE T4 0.9 ng/dl (0.76-1.46); POTASSIUM 3.5 mmol/L (3.5-5.1); TOTAL PROTEIN 6.1 gm/dL (6.4-8.2)
[2021-11-06 06:02] LABS: THYROID STIM HORMONE (HS) 1.44 uIU/ml (0.358-4.75)
[2021-11-06 06:39] LABS: BASO % 0.3 % (0.0-1.0); EOS # 0.1 10*3/uL (0.0-0.4); EOS % 1.4 % (1.0-4.0); HEMATOCRIT 39.7 % (42.0-52.0); LYMPH # 0.8 10*3/uL (1.3-4.4); LYMPH % 8.4 % (27.0-41.0); MEAN CELL VOLUME 100.8 fl (80.0-94.0); MEAN CORPUSCULAR HGB CONC 33.8 g/dl (33.0-37.0); MONO # 1.4 10*3/uL (0.1-1.0); MONO % 14.5 % (3.0-9.0); NEUT # 7.1 10*3/uL (2.3-7.9); NEUT % 74.9 % (47.0-73.0); PLATELET COUNT AUTOMATED 147 10*3/uL (130-400); RED BLOOD COUNT 3.94 10*6/uL (4.50-5.90); RED CELL DISTRI WIDTH 13.4 % (0-14.5); WHITE BLOOD COUNT 9.4 10*3/uL (4.8-10.8)
[2021-11-06 07:08] LABS: VITAMIN D, 25-HYDROXY 29.4 ng/mL (30-100)
[2021-11-06 08:00] VITALS: BP 155/83
[2021-11-06 12:00] VITALS: BP 160/75
[2021-11-06] MEDS ORDERED: VITAMIN B-121000 MC2 PO (13:24)
[2021-11-06] MEDS ORDERED: COMPLETE SENIO1 EACH PO (13:25)
[2021-11-06 16:00] VITALS: BP 162/86
[2021-11-06 20:00] VITALS: BP 169/87
[2021-11-07] VITALS: BP 164/84
[2021-11-07 04:00] VITALS: BP 161/88
[2021-11-07 04:22] LABS: BASO % 0.4 % (0.0-1.0); EOS # 0.2 10*3/uL (0.0-0.4); EOS % 3.1 % (1.0-4.0); HEMATOCRIT 37.3 % (42.0-52.0); LYMPH # 0.7 10*3/uL (1.3-4.4); MEAN CELL VOLUME 100.8 fl (80.0-94.0); MEAN CORPUSCULAR HGB 33.5 pg (27.0-31.0); MEAN CORPUSCULAR HGB CONC 33.2 g/dl (33.0-37.0); MEAN PLATELET VOLUME 10.6 fl (9.6-12.3); MONO # 1.1 10*3/uL (0.1-1.0); MONO % 14.9 % (3.0-9.0); NEUT # 5.3 10*3/uL (2.3-7.9); NEUT % 71.2 % (47.0-73.0); PLATELET COUNT AUTOMATED 131 10*3/uL (130-400); RED CELL DISTRI WIDTH 13.6 % (0-14.5); WHITE BLOOD COUNT 7.4 10*3/uL (4.8-10.8)
[2021-11-07 04:45] LABS: CREATININE 1.8 mg/dL (0.70-1.30); POTASSIUM 3.4 mmol/L (3.5-5.1); TOTAL PROTEIN 6.1 gm/dL (6.4-8.2)
[2021-11-07 08:00] VITALS: BP 160/82
[2021-11-07 12:00] VITALS: BP 149/74
[2021-11-07 16:00] VITALS: BP 155/84
[2021-11-07 20:00] VITALS: BP 165/96
[2021-11-08] VITALS: BP 173/97
[2021-11-08 04:02] VITALS: BP 179/89
[2021-11-08 05:04] VITALS: BP 133/74
[2021-11-08 05:28] LABS: BUN 17 mg/dl (7-24); CHLORIDE 114 mmol/L (98-107); CREATININE 1.23 mg/dL (0.70-1.30); POTASSIUM 3.3 mmol/L (3.5-5.1); SGOT/AST 18 IU/L (3-35); SGPT/ALT 21 U/L (12-78); SODIUM 143 mmol/L (136-145); TOTAL PROTEIN 5.9 gm/dL (6.4-8.2)
[2021-11-08 05:29] LABS: ALKALINE PHOSPHATASE 59 U/L (45-117)
[2021-11-08 06:12] LABS: BASO % 0.5 % (0.0-1.0); EOS # 0.5 10*3/uL (0.0-0.4); EOS % 7.6 % (1.0-4.0); HEMATOCRIT 36.2 % (42.0-52.0); LYMPH # 0.8 10*3/uL (1.3-4.4); LYMPH % 12.1 % (27.0-41.0); MEAN CELL VOLUME 100.3 fl (80.0-94.0); MEAN CORPUSCULAR HGB 33.8 pg (27.0-31.0); MEAN CORPUSCULAR HGB CONC 33.7 g/dl (33.0-37.0); MONO % 15.6 % (3.0-9.0); NEUT # 4.2 10*3/uL (2.3-7.9); NEUT % 63.6 % (47.0-73.0); PLATELET COUNT AUTOMATED 132 10*3/uL (130-400); RED BLOOD COUNT 3.61 10*6/uL (4.50-5.90); RED CELL DISTRI WIDTH 13.6 % (0-14.5); WHITE BLOOD COUNT 6.6 10*3/uL (4.8-10.8)
[2021-11-08 08:00] VITALS: BP 158/86
[2021-11-08] MEDS ORDERED: LORAZEPAM1 MG PO (10:51)
[2021-11-08] MEDS ORDERED: AMLODIPINE BESYL5 MG PO (10:51)
[2021-11-08 12:00] VITALS: BP 126/75
== END 2021-11-08 13:49 | DRG 917 ==
LOC: ED 12:44 → ICCU 15:57 → EDHOLD 15:57 → ICCU 16:51
PROVIDERS: Internal Medicine; ADMIT Student in an Organized Health Care Education/Training Program; ATTEND Student in an Organized Health Care Education/Training Program
DX: T42.4X2A Poisoning by benzodiazepines, intentional self-harm, initial encounter (principal); N17.0 Acute kidney failure with tubular necrosis; E87.2 Acidosis; E44.0 Moderate protein-calorie malnutrition; F10.10 Alcohol abuse, uncomplicated; E55.9 Vitamin D deficiency, unspecified; M10.9 Gout, unspecified; Y92.89 Other specified places as the place of occurrence of the external cause; R00.1 Bradycardia, unspecified; R31.9 Hematuria, unspecified; F32.A Depression, unspecified; I10 Essential (primary) hypertension; F41.9 Anxiety disorder, unspecified; E78.00 Pure hypercholesterolemia, unspecified; E87.8 Other disorders of electrolyte and fluid balance, not elsewhere classified; R73.9 Hyperglycemia, unspecified; Z88.1 Allergy status to other antibiotic agents; Z82.3 Family history of stroke; Z79.82 Long term (current) use of aspirin; Z79.899 Other long term (current) drug therapy; Z68.29 Body mass index [BMI] 29.0-29.9, adult

== ENCOUNTER → 2022-02-07 | Outpatient (CLI) | payer MEDICARE ==
[~2022-02-07] MED LIST changes: +CLONAZEPAM0.5 M2 PO; +COMPLETE SENIO1 EACH PO; +COZAAR25 M1 PO; +COZAAR50 M1 PO; +FOLTABS 800 TA1 EACH PO; +LIPITOR40 MG PO; +LORAZEPAM1 MG PO; +MIRTAZAPINE15 M2 PO; +SEPTDS PO; +VITAMIN B-1100 M1 PO; +VITAMIN B-121000 MC2 PO
[2022-02-07 13:40] LABS: BILIRUBIN Negative (Negative); BLOOD Negative (Negative); CLARITY Clear (Clear); COLOR Yellow (Yellow); GLUCOSE Negative (Negative); KETONE Negative (Negative); LEUKO ESTERASE Trace (Negative); NITRITE Negative (Negative); PH 5.5 (4.5-8.0); SPECIFIC GRAVITY <= 1.005 (1.001-1.030); UROBILINOGEN 0.2 E.U./dl (0.0-1.0)
[2022-02-07 13:56] LABS: BASO % 0.5 % (0.0-1.0); EOS # 0.3 10*3/uL (0.0-0.4); EOS % 5.1 % (1.0-4.0); HEMATOCRIT 39.3 % (42.0-52.0); LYMPH # 1.5 10*3/uL (1.3-4.4); LYMPH % 23.1 % (27.0-41.0); MEAN CORPUSCULAR HGB CONC 33.3 g/dl (33.0-37.0); MEAN PLATELET VOLUME 10.5 fl (9.6-12.3); MONO # 0.8 10*3/uL (0.1-1.0); MONO % 12.1 % (3.0-9.0); NEUT # 3.8 10*3/uL (2.3-7.9); NEUT % 58.9 % (47.0-73.0); PLATELET COUNT AUTOMATED 228 10*3/uL (130-400); RED BLOOD COUNT 3.97 10*6/uL (4.50-5.90); RED CELL DISTRI WIDTH 13.3 % (0-14.5); RETICULOCYTE % 1.88 % (0.50-2.50); WHITE BLOOD COUNT 6.5 10*3/uL (4.8-10.8)
[2022-02-07 14:01] LABS: BUN 18 mg/dl (7-24); CHLORIDE 110 mmol/L (98-107); CHOLESTEROL 159 mg/dL (<200); GAMMA GLUTAMYL TRANSPEPTIDASE 28 U/L (15-85); POTASSIUM 4.2 mmol/L (3.5-5.1); SODIUM 138 mmol/L (136-145); TRIGLYCERIDES 74 mg/dl (<150)
[2022-02-07 14:11] LABS: ALKALINE PHOSPHATASE 87 U/L (45-117); CREATININE 1.25 mg/dL (0.70-1.30); IRON 77 ug/dL (65-175); LDL CHOLESTEROL 75 mg/dL (9-159); SGOT/AST 21 IU/L (3-35); SGPT/ALT 23 U/L (12-78); THYROID STIM HORMONE (HS) 0.873 uIU/ml (0.358-4.75); TOTAL PROTEIN 7.7 gm/dL (6.4-8.2)
[2022-02-07 14:15] LABS: BACTERIA 1+; WBC 21-30 wbc/hpf (0-5)
== END | disposition home or self-care (01) ==
LOC: LAB 13:06
PROVIDERS: ATTEND Family Medicine
DX: E78.5 Hyperlipidemia, unspecified (principal); E55.9 Vitamin D deficiency, unspecified; R79.89 Other specified abnormal findings of blood chemistry; R53.83 Other fatigue; R74.8 Abnormal levels of other serum enzymes

== ENCOUNTER → 2022-05-25 | Outpatient (CLI) | payer MEDICARE ==
[2022-05-25 12:51] LABS: BASO % 0.5 % (0.0-1.0); EOS # 0.3 10*3/uL (0.0-0.4); EOS % 4.3 % (1.0-4.0); HEMATOCRIT 38.4 % (42.0-52.0); LYMPH # 1.4 10*3/uL (1.3-4.4); LYMPH % 21.6 % (27.0-41.0); MEAN CORPUSCULAR HGB 32.5 pg (27.0-31.0); MEAN CORPUSCULAR HGB CONC 33.9 g/dl (33.0-37.0); MEAN PLATELET VOLUME 10.7 fl (9.6-12.3); MONO # 0.7 10*3/uL (0.1-1.0); MONO % 11.6 % (3.0-9.0); NEUT # 3.9 10*3/uL (2.3-7.9); NEUT % 61.8 % (47.0-73.0); PLATELET COUNT AUTOMATED 210 10*3/uL (130-400); RED CELL DISTRI WIDTH 14.1 % (0-14.5); RETICULOCYTE % 1.98 % (0.50-2.50); WHITE BLOOD COUNT 6.3 10*3/uL (4.8-10.8)
[2022-05-25 12:57] LABS: BILIRUBIN Negative (Negative); BLOOD Negative (Negative); CLARITY Clear (Clear); COLOR Yellow (Yellow); GLUCOSE Negative (Negative); KETONE Negative (Negative); LEUKO ESTERASE 1+ (Negative); NITRITE Positive (Negative); SPECIFIC GRAVITY 1.015 (1.001-1.030); UROBILINOGEN 0.2 E.U./dl (0.0-1.0)
[2022-05-25 13:09] LABS: ALKALINE PHOSPHATASE 67 U/L (46-116); BUN 16 mg/dl (9-23); CHLORIDE 103 mmol/L (98-107); CHOLESTEROL 144 mg/dL (<200); CREATININE 1.12 mg/dL (0.70-1.30); GAMMA GLUTAMYL TRANSPEPTIDASE 24 U/L (0-73); LDL CHOLESTEROL 65 mg/dL (9-159); POTASSIUM 4.1 mmol/L (3.4-5.1); SGPT/ALT 29 U/L (10-49); THYROID STIM HORMONE (HS) 0.641 uIU/ml (0.550-4.780); TRIGLYCERIDES 85 mg/dl (<150)
[2022-05-25 13:24] LABS: BACTERIA 4+; WBC 21-30 wbc/hpf (0-5)
[2022-05-25 13:25] LABS: RBC 0-2 rbc/hpf (0-2)
[2022-05-25 13:26] LABS: VITAMIN D, 25-HYDROXY 39.7 ng/mL (30-100)
== END | disposition home or self-care (01) ==
LOC: LAB 12:09
PROVIDERS: ATTEND Family Medicine
DX: E78.5 Hyperlipidemia, unspecified (principal); E55.9 Vitamin D deficiency, unspecified; R79.89 Other specified abnormal findings of blood chemistry; R53.83 Other fatigue; R74.8 Abnormal levels of other serum enzymes; Z12.5 Encounter for screening for malignant neoplasm of prostate

== ENCOUNTER 2022-09-27 12:35 | Emergency (ER) | payer MEDICARE ==
[~2022-09-27] VITALS: Wt 83.9 kg
[2022-09-27 14:12] LABS: BASO % 0.4 % (0.0-1.0); EOS # 0.3 10*3/uL (0.0-0.4); EOS % 4.4 % (1.0-4.0); HEMATOCRIT 39.9 % (42.0-52.0); LYMPH # 1.1 10*3/uL (1.3-4.4); LYMPH % 14.4 % (27.0-41.0); MEAN CELL VOLUME 94.5 fl (80.0-94.0); MEAN CORPUSCULAR HGB 32.7 pg (27.0-31.0); MEAN CORPUSCULAR HGB CONC 34.6 g/dl (33.0-37.0); MEAN PLATELET VOLUME 10.5 fl (9.6-12.3); MONO # 0.9 10*3/uL (0.1-1.0); NEUT # 5.3 10*3/uL (2.3-7.9); NEUT % 68.4 % (47.0-73.0); PLATELET COUNT AUTOMATED 203 10*3/uL (130-400); RED BLOOD COUNT 4.22 10*6/uL (4.50-5.90); RED CELL DISTRI WIDTH 14.2 % (0-14.5); WHITE BLOOD COUNT 7.7 10*3/uL (4.8-10.8)
[2022-09-27 14:35] LABS: BUN 14 mg/dl (9-23); CHLORIDE 106 mmol/L (98-107); POTASSIUM 4.1 mmol/L (3.4-5.1)
[2022-09-27 14:37] LABS: ETHYL ALCOHOL < 3.0 mg/dl (<3)
[2022-09-27 15:21] LABS: BILIRUBIN Negative (Negative); BLOOD Negative (Negative); CLARITY Clear (Clear); COLOR Yellow (Yellow); GLUCOSE Negative (Negative); KETONE Negative (Negative); LEUKO ESTERASE Negative (Negative); NITRITE Negative (Negative); SPECIFIC GRAVITY 1.015 (1.001-1.030); UROBILINOGEN 0.2 E.U./dl (0.0-1.0)
[2022-09-27 15:28] LABS: URINE AMPHETAMINES Negative (1000ng/ml); URINE BARBITURATES Negative (200ng/ml); URINE BENZODIAZEPINES Negative (200ng/ml); URINE CANNABINOIDS (THC) Negative (50ng/ml); URINE COCAINE Negative (300ng/ml); URINE METHADONE Negative (300ng/ml); URINE OPIATES Negative (300ng/ml); URINE PHENCYCLIDINE Negative (25ng/ml)
[2022-09-27 15:30] LABS: MUCOUS 1+; RBC 0-2 rbc/hpf (0-2); WBC 0-2 wbc/hpf (0-5)
== END 2022-09-27 18:05 | disposition home or self-care (01) ==
LOC: ED 12:35
PROVIDERS: Emergency Medicine
DX: F43.23 Adjustment disorder with mixed anxiety and depressed mood (principal); I10 Essential (primary) hypertension; E78.5 Hyperlipidemia, unspecified; Z88.1 Allergy status to other antibiotic agents; Z96.651 Presence of right artificial knee joint; Z98.890 Other specified postprocedural states; Z87.442 Personal history of urinary calculi; F10.10 Alcohol abuse, uncomplicated; F17.200 Nicotine dependence, unspecified, uncomplicated; Z79.899 Other long term (current) drug therapy

== ENCOUNTER → 2022-11-06 | Outpatient (CLI) | payer MEDICARE ==
[2022-11-06 15:54] LABS: BILIRUBIN Negative (Negative); BLOOD Negative (Negative); CLARITY Clear (Clear); COLOR Yellow (Yellow); GLUCOSE Negative (Negative); KETONE Negative (Negative); LEUKO ESTERASE Negative (Negative); NITRITE Negative (Negative); PH 5.5 (4.5-8.0); SPECIFIC GRAVITY 1.015 (1.001-1.030); UROBILINOGEN 0.2 E.U./dl (0.0-1.0)
[2022-11-06 15:57] LABS: BASO % 0.5 % (0.0-1.0); EOS # 0.3 10*3/uL (0.0-0.4); EOS % 5.2 % (1.0-4.0); HEMATOCRIT 42.7 % (42.0-52.0); LYMPH # 1.5 10*3/uL (1.3-4.4); LYMPH % 25.2 % (27.0-41.0); MEAN CELL VOLUME 99.5 fl (80.0-94.0); MEAN CORPUSCULAR HGB 31.7 pg (27.0-31.0); MEAN CORPUSCULAR HGB CONC 31.9 g/dl (33.0-37.0); MEAN PLATELET VOLUME 10.7 fl (9.6-12.3); MONO # 0.7 10*3/uL (0.1-1.0); MONO % 12.4 % (3.0-9.0); NEUT # 3.4 10*3/uL (2.3-7.9); NEUT % 56.5 % (47.0-73.0); PLATELET COUNT AUTOMATED 215 10*3/uL (130-400); RED BLOOD COUNT 4.29 10*6/uL (4.50-5.90); RED CELL DISTRI WIDTH 13.8 % (0-14.5); RETICULOCYTE % 1.54 % (0.50-2.50)
[2022-11-06 16:10] LABS: BACTERIA TRACE; EPITHELIAL CELLS 0-2; RBC 0-2 rbc/hpf (0-2); WBC 0-2 wbc/hpf (0-5)
[2022-11-06 16:20] LABS: ALKALINE PHOSPHATASE 82 U/L (46-116); BUN 15 mg/dl (9-23); CHLORIDE 107 mmol/L (98-107); CHOLESTEROL 142 mg/dL (<200); GAMMA GLUTAMYL TRANSPEPTIDASE 30 U/L (0-73); LDL CHOLESTEROL 65 mg/dL (9-159); POTASSIUM 3.8 mmol/L (3.4-5.1); SGPT/ALT 20 U/L (10-49); THYROID STIM HORMONE (HS) 1.129 uIU/ml (0.550-4.780); TOTAL PROTEIN 7.3 gm/dL (6.0-8.0); TRIGLYCERIDES 96 mg/dl (<150); URIC ACID 6.4 mg/dL (3.7-9.2)
[2022-11-06 16:22] LABS: VITAMIN D, 25-HYDROXY 47.9 ng/mL (30-100)
== END | disposition home or self-care (01) ==
LOC: LAB 15:19
PROVIDERS: ATTEND Family Medicine
DX: Z12.5 Encounter for screening for malignant neoplasm of prostate (principal); E78.5 Hyperlipidemia, unspecified; R79.89 Other specified abnormal findings of blood chemistry; R53.83 Other fatigue; R74.8 Abnormal levels of other serum enzymes; E55.9 Vitamin D deficiency, unspecified

== ENCOUNTER → 2023-05-03 | Outpatient (CLI) | payer MEDICARE ==
[2023-05-03 14:40] LABS: BILIRUBIN Negative (Negative); BLOOD Negative (Negative); CLARITY Clear (Clear); COLOR Yellow (Yellow); GLUCOSE Negative (Negative); KETONE Negative (Negative); LEUKO ESTERASE Negative (Negative); NITRITE Negative (Negative); SPECIFIC GRAVITY 1.015 (1.001-1.030); UROBILINOGEN 0.2 E.U./dl (0.0-1.0)
[2023-05-03 14:59] LABS: WBC 0-2 wbc/hpf (0-5)
[2023-05-03 15:12] LABS: ALKALINE PHOSPHATASE 64 U/L (46-116); BUN 13 mg/dl (9-23); CHLORIDE 109 mmol/L (98-107); CHOLESTEROL 175 mg/dL (<200); GAMMA GLUTAMYL TRANSPEPTIDASE 29 U/L (0-73); LDL CHOLESTEROL 84 mg/dL (9-159); POTASSIUM 5.2 mmol/L (3.4-5.1); SGPT/ALT 22 U/L (5-49); T3 UPTAKE 33.8 % (22.4-36.7); THYROXINE (T4) TOTAL 5.1 ug/dl (4.5-10.9); TOTAL PROTEIN 7.5 gm/dL (6.0-8.0); TRIGLYCERIDES 116 mg/dl (<150); VITAMIN D, 25-HYDROXY 40.7 ng/mL (30-100)
[2023-05-03 16:15] LABS: BASO % 0.4 % (0.0-1.0); EOS # 0.4 10*3/uL (0.0-0.4); EOS % 4.7 % (1.0-4.0); HEMATOCRIT 39.6 % (42.0-52.0); LYMPH # 1.7 10*3/uL (1.3-4.4); LYMPH % 20.8 % (27.0-41.0); MEAN CELL VOLUME 98.8 fl (80.0-94.0); MEAN CORPUSCULAR HGB 32.4 pg (27.0-31.0); MEAN CORPUSCULAR HGB CONC 32.8 g/dl (33.0-37.0); MEAN PLATELET VOLUME 10.4 fl (9.6-12.3); MONO # 0.7 10*3/uL (0.1-1.0); MONO % 8.7 % (3.0-9.0); NEUT # 5.2 10*3/uL (2.3-7.9); NEUT % 65.1 % (47.0-73.0); PLATELET COUNT AUTOMATED 190 10*3/uL (130-400); RED BLOOD COUNT 4.01 10*6/uL (4.50-5.90); RED CELL DISTRI WIDTH 14.2 % (0-14.5); WHITE BLOOD COUNT 7.9 10*3/uL (4.8-10.8)
[2023-05-03 16:32] LABS: RETICULOCYTE % 1.43 % (0.50-2.50)
== END ==
LOC: LAB 14:14
PROVIDERS: ATTEND Family Medicine
DX: Z12.5 Encounter for screening for malignant neoplasm of prostate (principal); R79.89 Other specified abnormal findings of blood chemistry; E78.5 Hyperlipidemia, unspecified; R53.83 Other fatigue; E55.9 Vitamin D deficiency, unspecified; R74.8 Abnormal levels of other serum enzymes

== ENCOUNTER → 2023-10-29 | Outpatient (CLI) | payer MEDICARE ==
[2023-10-29 14:34] LABS: BASO % 0.5 % (0.0-1.0); EOS # 0.3 10*3/uL (0.0-0.4); EOS % 3.6 % (1.0-4.0); HEMATOCRIT 40.8 % (42.0-52.0); LYMPH # 1.4 10*3/uL (1.3-4.4); LYMPH % 18.3 % (27.0-41.0); MEAN CELL VOLUME 98.1 fl (80.0-94.0); MEAN CORPUSCULAR HGB 32.2 pg (27.0-31.0); MEAN CORPUSCULAR HGB CONC 32.8 g/dl (33.0-37.0); MEAN PLATELET VOLUME 10.8 fl (9.6-12.3); MONO # 0.9 10*3/uL (0.1-1.0); MONO % 12.1 % (3.0-9.0); NEUT # 5.1 10*3/uL (2.3-7.9); NEUT % 65.2 % (47.0-73.0); PLATELET COUNT AUTOMATED 219 10*3/uL (130-400); RED BLOOD COUNT 4.16 10*6/uL (4.50-5.90); RED CELL DISTRI WIDTH 14.1 % (0-14.5); RETICULOCYTE % 1.67 % (0.50-2.50); WHITE BLOOD COUNT 7.8 10*3/uL (4.8-10.8)
[2023-10-29 14:43] LABS: BILIRUBIN Negative (Negative); BLOOD Negative (Negative); CLARITY Clear (Clear); COLOR Yellow (Yellow); GLUCOSE Negative (Negative); KETONE Negative (Negative); LEUKO ESTERASE Negative (Negative); NITRITE Negative (Negative); SPECIFIC GRAVITY 1.015 (1.001-1.030); UROBILINOGEN 0.2 E.U./dl (0.0-1.0)
[2023-10-29 14:56] LABS: BACTERIA TRACE
[2023-10-29 15:22] LABS: ALKALINE PHOSPHATASE 73 U/L (46-116); BUN 21 mg/dl (9-23); CHLORIDE 107 mmol/L (98-107); CHOLESTEROL 151 mg/dL (<200); GAMMA GLUTAMYL TRANSPEPTIDASE 24 U/L (0-73); LDL CHOLESTEROL 76 mg/dL (9-159); SGPT/ALT 19 U/L (5-49); T3 UPTAKE 39.5 % (22.4-36.7); THYROXINE (T4) TOTAL 3.8 ug/dl (4.5-10.9); TOTAL PROTEIN 6.8 gm/dL (6.0-8.0); TRIGLYCERIDES 73 mg/dl (<150); URIC ACID 6.6 mg/dL (3.7-9.2)
== END | disposition home or self-care (01) ==
LOC: LAB 14:04
PROVIDERS: ATTEND Family Medicine
DX: Z12.5 Encounter for screening for malignant neoplasm of prostate (principal); R79.89 Other specified abnormal findings of blood chemistry; R53.83 Other fatigue; E78.5 Hyperlipidemia, unspecified; E55.9 Vitamin D deficiency, unspecified

== ENCOUNTER → 2024-07-28 | Outpatient (CLI) | payer MEDICARE ==
[2024-07-28 14:24] LABS: BASO % 0.5 % (0.0-1.0); EOS # 0.2 10*3/uL (0.0-0.4); HEMATOCRIT 37.9 % (42.0-52.0); MEAN CELL VOLUME 95.9 fl (80.0-94.0); MEAN CORPUSCULAR HGB 32.2 pg (27.0-31.0); MEAN CORPUSCULAR HGB CONC 33.5 g/dl (33.0-37.0); MEAN PLATELET VOLUME 10.5 fl (9.6-12.3); MONO # 0.7 10*3/uL (0.1-1.0); MONO % 9.8 % (3.0-9.0); NEUT # 5.1 10*3/uL (2.3-7.9); NEUT % 69.3 % (47.0-73.0); PLATELET COUNT AUTOMATED 215 10*3/uL (130-400); RED BLOOD COUNT 3.95 10*6/uL (4.50-5.90); RED CELL DISTRI WIDTH 13.6 % (0-14.5); RETICULOCYTE % 1.46 % (0.50-2.50); WHITE BLOOD COUNT 7.4 10*3/uL (4.8-10.8)
[2024-07-28 14:28] LABS: BILIRUBIN Negative (Negative); BLOOD Negative (Negative); CLARITY Clear (Clear); COLOR Yellow (Yellow); GLUCOSE Negative (Negative); KETONE Negative (Negative); LEUKO ESTERASE Negative (Negative); NITRITE Negative (Negative); PH 5.5 (4.5-8.0); SPECIFIC GRAVITY 1.015 (1.001-1.030); UROBILINOGEN 0.2 E.U./dl (0.0-1.0)
[2024-07-28 14:56] LABS: ALKALINE PHOSPHATASE 67 U/L (46-116); BUN 21 mg/dl (9-23); CHLORIDE 106 mmol/L (98-107); CHOLESTEROL 148 mg/dL (<200); GAMMA GLUTAMYL TRANSPEPTIDASE 38 U/L (0-73); LDL CHOLESTEROL 67 mg/dL (9-159); POTASSIUM 4.7 mmol/L (3.4-5.1); SGPT/ALT 19 U/L (5-49); TOTAL PROTEIN 7.1 gm/dL (6.0-8.0); TRIGLYCERIDES 92 mg/dl (<150)
[2024-07-28 14:58] LABS: VITAMIN D, 25-HYDROXY 42.4 ng/mL (30-100)
[2024-07-28 15:35] LABS: BACTERIA TRACE; WBC 0-2 wbc/hpf (0-5)
== END | disposition home or self-care (01) ==
LOC: LAB 14:05
PROVIDERS: ATTEND Family Medicine
DX: E55.9 Vitamin D deficiency, unspecified (principal); R79.89 Other specified abnormal findings of blood chemistry; R53.83 Other fatigue; R74.8 Abnormal levels of other serum enzymes

== ENCOUNTER → 2025-04-21 | Outpatient (CLI) | payer MEDICARE ==
[2025-04-21 14:43] LABS: BASO # 0.0 10*3/uL (0.0-0.1); BASO % 0.5 % (0.0-1.0); EOS # 0.6 10*3/uL (0.0-0.4); EOS % 8.6 % (1.0-4.0); MEAN CELL VOLUME 97.8 fl (80.0-94.0); MEAN CORPUSCULAR HGB 32.4 pg (27.0-31.0); MEAN PLATELET VOLUME 10.5 fl (9.6-12.3); MONO # 0.8 10*3/uL (0.1-1.0); MONO % 11.0 % (3.0-9.0); NEUT # 4.2 10*3/uL (2.3-7.9); NEUT % 56.2 % (47.0-73.0); NUCLEATED RED BLOOD CELL 0.0 % (0.0-0.0); NUCLEATED RED BLOOD CELL 0.0 10*3/uL (0.0-0.0); PLATELET COUNT AUTOMATED 204 10*3/uL (130-400); RED CELL DISTRI WIDTH 13.4 % (0-14.5); RETICULOCYTE % 1.38 % (0.50-2.50)
[2025-04-21 15:00] LABS: BILIRUBIN Negative (Negative); BLOOD Negative (Negative); CLARITY Clear (Clear); COLOR Yellow (Yellow); KETONE Negative (Negative); LEUKO ESTERASE Negative (Negative); NITRITE Negative (Negative); PH 6.0 (4.5-8.0); SPECIFIC GRAVITY 1.015 (1.001-1.030); UROBILINOGEN 0.2 E.U./dl (0.0-1.0)
[2025-04-21 15:01] LABS: MUCOUS 1+; RBC 0-2 rbc/hpf (0-2)
[2025-04-21 15:11] LABS: BUN 23 mg/dl (9-23); GAMMA GLUTAMYL TRANSFERASE 29 U/L (0-73); LDL CHOLESTEROL 53 mg/dL (9-159); SGPT/ALT 15 U/L (5-49); VITAMIN D, 25-HYDROXY 39.8 ng/mL (30-100)
== END | disposition home or self-care (01) ==
LOC: LAB 14:01
PROVIDERS: ATTEND Family Medicine
DX: R79.89 Other specified abnormal findings of blood chemistry (principal); E78.5 Hyperlipidemia, unspecified; E55.9 Vitamin D deficiency, unspecified; R53.83 Other fatigue